=== PATIENT | female | born 2000 | race Caucasian/White ===

== ENCOUNTER 2023-05-03 12:51 | Emergency (ER) | payer MEDICAID ==
[~2023-05-03] VITALS: Ht 162.6 cm; Wt 66.0 kg
[2023-05-03 15:17] VITALS: BP 107/72; PULSE 66; RESP 18; TEMP 98.4
== END 2023-05-03 16:30 | disposition left against medical advice (07) ==
LOC: EMS 12:53
DX: Z53.21 Procedure and treatment not carried out due to patient leaving prior to being seen by health care provider (principal)
CPT/HCPCS: 99281; Z7502